=== PATIENT | male | born 1985 | race Caucasian/White ===

== ENCOUNTER 2019-07-09 11:51 | Emergency (ER) | payer OTHER, SELFPAY ==
[2019-07-09 11:58] VITALS: BP 134/87; PULSE 92; RESP 18; TEMP 36.4; O2SAT 95
[2019-07-09] MEDS: KETOROLAC 60 MG/2 ML VIAL IM (13:42)
--- NOTE | 2019-07-09 15:16 | ED.BACK ---
HPI - Back Pain/Injury <GIOVANY Aceves - Last Filed: 07/09/19 15:28> General Chief Complaint: Back Pain/Injury Stated Complaint: low back pain Time Seen by Provider: 07/09/19 13:28 Source: patient Mode of arrival: Ambulatory Limitations: no limitations History of Present Illness HPI Narrative: The patient is a 33-year-old male nonsmoker with history of lower back pain who presents with a chief complaint of low back pain. He states that it flares up once in a while in today bent over to lift something up, and had some pain on his left side before even lifted the object. He denies any incontinence of bowel, incontinence of bladder saddle anesthesia. He states he would just like something to help with pain, does not want anything controlled or sedating. He has not taken anything for the pain, but has tried Epsom salt baths as well as a support brace. He denies any falls or trauma. Related Data Previous Rx's Medication Instructions Recorded cyclobenzaprine 10 mg PO TID PRN #20 tab 07/09/19 ketorolac 10 mg PO TID PRN #15 tab 07/09/19 Allergies Allergy/AdvReac Type Severity Reaction Status Date / Time No Known Drug Allergies Allergy Verified 07/09/19 12:00 Review of Systems <GIOVANY Aceves - Last Filed: 07/09/19 15:28> Review of Systems Narrative: GENERAL: Denies chills, fatigue, malaise, fever, sweats. HEENT: Denies sinus pain, ear pain, sore throat, difficulty swallowing, dizziness. RESPIRATORY: Denies dyspnea, cough, wheezing, hemoptysis, sputum. CARDIOVASCULAR: Denies chest pain, palpitations, orthopnea, edema, GASTROINTESTINAL: Denies nausea, vomiting, abdominal pain, diarrhea, constipation, melena. : Denies dysuria, frequency, incontinence, hematuria, urinary retention. MUSCULOSKELETAL: See HPI SKIN: Denies rash, skin lesions, or other NEUROLOGIC: Denies weakness, headache, numbness, change in speech, confusion, seizures, incoordination. PSYCHIATRIC: No concerning psychosocial issues. 12 point review of systems is negative except for those stated above Patient History <GIOVANY Aceves - Last Filed: 07/09/19 15:28> Social History Smoking Status: Never smoker Smoking Status: Never smoker alcohol intake frequency: 0-2 drinks per day Substance Use Type: does not use Exam <GIOVANY Aceves - Last Filed: 07/09/19 15:28> Narrative Exam Narrative: GENERAL: This is a well-nourished, well-developed patient, in appears uncomfortable HEAD: Atraumatic. Normocephalic. No temporal or scalp tenderness. EYES: Pupils equal round and reactive. Extraocular motions intact. No scleral icterus. No injection or drainage. ENT: Nose without bleeding, purulent drainage or septal hematoma. Throat without erythema, tonsillar hypertrophy or exudate. Uvula midline. Airway patent. NECK: Trachea midline. No JVD or lymphadenopathy. Supple, nontender, no meningeal signs. CARDIOVASCULAR: Regular rate and rhythm RESPIRATORY: Clear to auscultation. Breath sounds equal bilaterally. No wheezes, rales, or rhonchi. No cough. No increased respiratory effort. No accessory muscle use. EXTREMITIES: No clubbing, cyanosis, or edema. No joint tenderness, effusion, or edema noted. BACK: No pain to cervical or thoracic spine palpation. Pain to lumbar spine palpation. Pain to left-sided paraspinal muscle palpation. NEURO: AOx3. Strength is equal upper and lower extremities bilaterally. Stable gait. SKIN: No rash or erythema visible skin. Initial Vital Signs Initial Vital Signs: Vital Signs Temperature 97.5 F L 07/09/19 11:58 Pulse Rate 92 H 07/09/19 11:58 Respiratory Rate 18 07/09/19 11:58 Blood Pressure 134/87 07/09/19 11:58 Pulse Oximetry 95 07/09/19 11:58 <Jagdeep Taylor DO - Last Filed: 07/09/19 19:53> Initial Vital Signs Initial Vital Signs: Vital Signs Temperature 97.5 F L 07/09/19 11:58 Pulse Rate 92 H 07/09/19 11:58 Respiratory Rate 18 07/09/19 11:58 Blood Pressure 134/87 07/09/19 11:58 Pulse Oximetry 95 07/09/19 11:58 Course <GIOVANY Aceves - Last Filed: 07/09/19 15:28> Orders Ordered: Discontinued Medications Ketorolac Tromethamine (Toradol) 60 mg IM NOW ONE Stop: 07/09/19 13:39 Last Admin: 07/09/19 13:42 Dose: 60 mg Documented by: Postmaster Vital Signs Vital signs: Vital Signs - 8 hr 07/09/19 11:58 Temperature 97.5 F L Pulse Rate 92 H Respiratory Rate 18 Blood Pressure 134/87 Pulse Oximetry 95 <Jagdeep Taylor DO - Last Filed: 07/09/19 19:53> Orders Ordered: Discontinued Medications Ketorolac Tromethamine (Toradol) 60 mg IM NOW ONE Stop: 07/09/19 13:39 Last Admin: 07/09/19 13:42 Dose: 60 mg Documented by: [email or web address] Vital Signs Vital signs: Vital Signs - 8 hr 07/09/19 11:58 Temperature 97.5 F L Pulse Rate 92 H Respiratory Rate 18 Blood Pressure 134/87 Pulse Oximetry 95 MDM - Back Pain/Injury <GIOVANY Aceves - Last Filed: 07/09/19 15:28> MDM Narrative Medical decision making narrative: The patient is a 33-year-old male nonsmoker presents with chief complaint of low back pain. He does not want x-rays today, denies trauma, denies any red flag symptoms of incontinence of bowel, incontinence of bladder saddle anesthesia but states understanding of these are return precautions. He did not feel much improvement with the Toradol, but did not want anything else for pain. He later asked for muscle relaxers to help him sleep at night only, and I am okay with this. I discussed at length the importance of following up with primary care provider in the next few days. Discussed at length return precautions the emergency department. Patient has no questions or concerns upon discharge and states understanding of return precautions as well as follow-up care. Discharge Plan Departure Patient Disposition: Home Clinical Impression: Lumbar back pain Discharge Date/Time: 07/09/19 14:37 Instructions: DI for Low Back Pain, DI for Back Spasm, DI for Back Strain or Sprain Activity Restrictions/Additional Instructions: I sent 2 prescriptions to [facility] for your back pain I have given you a prescription of Toradol. This is an NSAID. Do not combine it with other NSAIDs such as Aleve or ibuprofen. I suggest taking it with some food, as it can irritate your stomach. I also gave you a prescription of Flexeril which is a muscle relaxer. This can be sedating. Please follow-up with primary care provider in the next few days. Please come back to emergency department for any acute concerns such as incontinence of bowel, incontinence of bladder or numbness in her groin Prescriptions: New cyclobenzaprine 10 mg tablet 10 mg PO TID PRN (Reason: muscle spasm) Qty: 20 RF: 0 ketorolac 10 mg tablet 10 mg PO TID PRN (Reason: pain) Qty: 15 RF: 0 Referrals: [facility] [Provider Group]
== END 2019-07-09 14:37 | disposition home or self-care (01) ==
PROVIDERS: Emergency Provider Nurse Practitioner Family
DX: M54.5 Low back pain (principal)
CPT/HCPCS: 96372; 99283; J1885